=== PATIENT | male | born 1960 | race African-American/Black ===

== ENCOUNTER 2021-11-19 06:10 | Emergency (ER) | payer BC ==
[2021-11-19] MEDS ORDERED: INDOMETHACIN 50 MG CAPSULE PO ONE (06:21)
[2021-11-19] MEDS ORDERED: COLCHICINE 0.6 MG TAB PO ONE (06:21)
[2021-11-19] MEDS ORDERED: INDOMETHACIN 25 MG CAPSULE ONE (06:25)
[2021-11-19] MEDS ORDERED: COLCHICINE 0.6 MG CAPSULE ONE (06:25)
[2021-11-19 06:27] VITALS: BP 145/102; PULSE 104; RESP 20; TEMP 98.7; BMI 36.5
== END 2021-11-19 07:05 | disposition home or self-care (01) ==
LOC: FER 06:10
DX: M12.862 Other specific arthropathies, not elsewhere classified, left knee (principal)
CPT/HCPCS: 73560-TC-LT-FY; 99283-25